=== PATIENT | female | born 2000 | race Caucasian/White ===

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

== ENCOUNTER 2020-04-25 16:09 | Emergency (ER) | payer BC ==
[~2020-04-25] VITALS: Ht 162.6 cm; Wt 81.8 kg
[2020-04-25 16:13] VITALS: TEMP 98.5
[2020-04-25 17:13] LABS: COLLECTION METHOD CLEAN CATCH
[2020-04-25 17:30] LABS: MUCOUS Present /lpf; PH 5 (5-8); URINE APPEARANCE Hazy; URINE BACTERIA None Seen /hpf; URINE BILIRUBIN Negative (NEGATIVE); URINE BLOOD Negative (NEGATIVE); URINE COLOR Yellow; URINE GLUCOSE Negative (NEGATIVE); URINE KETONE Trace (NEGATIVE); URINE LEUKOCYTE ESTERASE Negative (NEGATIVE); URINE NITRATE Negative (NEGATIVE); URINE PROTEIN(semi-quant) Negative (NEGATIVE); URINE RBC 0-2 /hpf; URINE UROBILINOGEN Negative (NEGATIVE)
[2020-04-25 17:35] LABS: BASO % 0.3 % (0.0-2.0); EOS # 0.3 (0.0-0.7); EOS % 2.1 % (0-4.0); GRAN # 9.9 (1.4-6.5); GRAN % 64.2 % (42.2-75.2); HEMATOCRIT 39.5 % (35.0-45.0); HEMOGLOBIN 13.2 g/dl (12.0-15.0); LYMPH # 4.4 (1.2-3.4); LYMPH % 28.3 % (20.0-51.0); MEAN CELL VOLUME 88 fl (80.0-95.0); MEAN CORPUSCULAR HEMOGLOBIN 29 pg (26.0-32.0); MEAN CORPUSCULAR HGB CONC 33 g/dl (33.0-37.0); MEAN PLATELET VOLUME 10.3 fl (7.4-10.4); MONO # 0.7 (0.1-0.6); MONO % 4.7 % (1.7-9.3); PLATELET COUNT 307 K/mm3 (130-400); RED BLOOD COUNT 4.51 M/mm3 (4.10-5.30); REDCELL DISTRIBUTION WIDTH-CV 12.4 % (11.5-14.5)
[2020-04-25 17:42] LABS: ALBUMIN 4.1 gm/dL (3.5-5.0); BILIRUBIN,TOTAL 0.3 mg/dL (0.0-1.0); CALCIUM 9.2 mg/dL (8.4-10.2); CREATININE, serum 0.48 (0.52-1.25); POTASSIUM 3.7 mmol/L (3.4-5.0); TOTAL PROTEIN 7.1 gm/dL (6.4-8.2)
[2020-04-25 18:09] VITALS: BP 116/78; PULSE 64
== END 2020-04-25 18:10 | disposition home or self-care (01) ==
LOC: COL.ER 16:09
PROVIDERS: Nurse Practitioner Primary Care
DX: O26.891 Other specified pregnancy related conditions, first trimester (principal); R10.31 Right lower quadrant pain; R10.32 Left lower quadrant pain; R35.0 Frequency of micturition; Z3A.13 13 weeks gestation of pregnancy
CPT/HCPCS: J7030

== ENCOUNTER 2020-05-05 12:45 | Emergency (ER) | payer BC ==
[~2020-05-05] VITALS: Ht 162.6 cm; Wt 81.8 kg
[2020-05-05 13:41] LABS: COLLECTION METHOD CLEAN CATCH
[2020-05-05 13:46] LABS: MUCOUS Present /lpf; PH 8 (5-8); SQUAMOUS EPITHELIAL 0-2 /hpf; URINE APPEARANCE Clear; URINE BACTERIA None Seen /hpf; URINE BILIRUBIN Negative (NEGATIVE); URINE BLOOD Negative (NEGATIVE); URINE COLOR Straw; URINE GLUCOSE Negative (NEGATIVE); URINE KETONE Negative (NEGATIVE); URINE LEUKOCYTE ESTERASE Negative (NEGATIVE); URINE NITRATE Negative (NEGATIVE); URINE PROTEIN(semi-quant) Negative (NEGATIVE); URINE RBC None Seen /hpf; URINE UROBILINOGEN Negative (NEGATIVE)
[2020-05-05 13:51] LABS: BASO % 0.4 % (0.0-2.0); EOS # 0.3 (0.0-0.7); EOS % 2.2 % (0-4.0); GRAN % 62.5 % (42.2-75.2); HEMATOCRIT 40.3 % (35.0-45.0); HEMOGLOBIN 13.9 g/dl (12.0-15.0); LYMPH # 3.3 (1.2-3.4); LYMPH % 29.3 % (20.0-51.0); MEAN CELL VOLUME 84 fl (80.0-95.0); MEAN CORPUSCULAR HEMOGLOBIN 29 pg (26.0-32.0); MEAN CORPUSCULAR HGB CONC 35 g/dl (33.0-37.0); MEAN PLATELET VOLUME 10.2 fl (7.4-10.4); MONO # 0.6 (0.1-0.6); MONO % 5.2 % (1.7-9.3); PLATELET COUNT 278 K/mm3 (130-400); RED BLOOD COUNT 4.78 M/mm3 (4.10-5.30); REDCELL DISTRIBUTION WIDTH-CV 12.5 % (11.5-14.5)
[2020-05-05 13:55] LABS: TRICYCLIC ANTIDEPRESS URINE NEGATIVE
[2020-05-05 14:03] LABS: ALANINE AMINOTRANSFERASE 14 U/L (4-34); ALBUMIN 4.1 gm/dL (3.5-5.0); ALKALINE PHOSPHATASE 58 U/L (50-136); ANION GAP 6 mmol/L (7-16); AST,SGOT 26 U/L (15-37); BILIRUBIN,TOTAL 0.6 mg/dL (0.0-1.0); BLOOD UREA NITROGEN 7 mg/dL (7-17); CALCIUM 9.7 mg/dL (8.4-10.2); CARBON DIOXIDE 23 mmol/L (22-30); CHLORIDE 108 mmol/L (98-107); GLUCOSE 89 mg/dL (74-106); POTASSIUM 4.1 mmol/L (3.4-5.0); SODIUM 136 mmol/L (137-145); TOTAL PROTEIN 7.2 gm/dL (6.4-8.2)
[2020-05-05 14:04] LABS: ALCOHOL(ethanol),MEDICAL < 10 mg/dL
[2020-05-05 14:19] LABS: TROPONIN-I < 0.012 ng/mL (0.000-0.035)
[2020-05-05 14:27] LABS: INR 0.9 (0.8-3.0); PROTHROMBIN TIME 10.5 SECONDS (9.7-12.8)
[2020-05-05 16:05] VITALS: BP 122/78; PULSE 64; TEMP 98.8
== END 2020-05-05 16:07 | disposition home or self-care (01) ==
LOC: COL.ER 12:45
PROVIDERS: Emergency Medicine
DX: O99.891 Other specified diseases and conditions complicating pregnancy (principal); R10.2 Pelvic and perineal pain; R53.1 Weakness; R20.2 Paresthesia of skin; Z3A.15 15 weeks gestation of pregnancy

== ENCOUNTER 2020-08-11 23:16 | Outpatient (CLI) | payer MEDICAID ==
--- NOTE | 2020-08-11 23:20 | NUR ---
2320- PATIENT WHEELED ONTO UNIT WITH BY HER SIDE. PATIENT IS A PATIENT WHO FOLLOWS UP IN [place] AT [facility]. PATIENT STATED SHE HAS NO COMPLICATIONS THIS ROUND OR WITH ANY OF HER PREGNANCIES OTHER THAN LABOR WITH 2ND PREGNANY 3 MONTHS EARLY AND DELIVERING A MONTH EARLY. PATIENT REPORTS GFM, NO LOF OR BLEEDING AND CONTRACTIONS THAT STARTED AROUND 2145 THIS NIGHT AND HAVE GOTTEN CLOSER TOGETHER AND MORE INTENSE. 2325- EFM AND TOCO ON AND TRACING. ASSESSMENT COMPLETED, VITALS TAKEN, PLAN OF CARE DISCUSSED. SVE WAS 1/THICK/HIGH.
[2020-08-12 00:30] VITALS: BP 120/66; PULSE 68; TEMP 98
[2020-08-12 01:30] VITALS: BP 111/57; PULSE 83
[2020-08-12 01:53] VITALS: BP 107/63; PULSE 79
== END 2020-08-12 02:05 | disposition home or self-care (01) ==
LOC: LDRO 23:16
DX: O62.9 Abnormality of forces of labor, unspecified (principal); Z3A.00 Weeks of gestation of pregnancy not specified
CPT/HCPCS: J0702; J3105; J7120

== ENCOUNTER 2020-08-13 01:30 | Outpatient (CLI) | payer MEDICAID ==
--- NOTE | 2020-08-13 01:45 | NUR ---
Ambulatory to unit for 2nd Betamethasone shot, accompanied by spouse.Reviewed monitor, plan of care. Questions invited and answered. Pt reports "just a few contractions today, nothing consistent, hor very uncomfortable."
--- NOTE | 2020-08-13 02:09 | NUR ---
12mg Betamethasone to R.
--- NOTE | 2020-08-13 02:30 | NUR ---
Discharge instructions reviewed with pt and spouse. Questions invited and answered.
== END 2020-08-13 02:30 | disposition home or self-care (01) ==
LOC: LDRO 01:30 → LDR 01:45 → LDRO 02:30
DX: O76 Abnormality in fetal heart rate and rhythm complicating labor and delivery (principal); Z3A.00 Weeks of gestation of pregnancy not specified
CPT/HCPCS: OP; J0702

== ENCOUNTER 2020-10-02 13:05 | Outpatient (CLI) | payer MEDICAID ==
[~2020-10-02] VITALS: Ht 162.6 cm; Wt 86.4 kg
--- NOTE | 2020-10-02 13:15 | NUR ---
Pt arrived on unit ambulatory and with complaints of contractions starting last evening and worsening this morning. Pt denies any leaking of fluid or vaginal bleeding and reports normal movement. EFM and toco monitors started. Vital signs WNL. SVE /-3.
[2020-10-02] MEDS ORDERED: TYLENOL 500MG500 MG PO (13:29)
[2020-10-02 14:20] VITALS: BP 120/58; PULSE 77; TEMP 98.2
--- NOTE | 2020-10-02 14:20 | NUR ---
SVE done with no change . See physician notification for details.
[2020-10-02 15:20] VITALS: BP 113/55; PULSE 68
--- NOTE | 2020-10-02 15:29 | NUR ---
Discharge information and labor precautions reviewed with pt and at the bedside. Both verbalized an understanding, agreed with the plan and state no questions or concerns at this time.
== END 2020-10-02 15:30 | disposition home or self-care (01) ==
LOC: LDRO 13:05
DX: O62.9 Abnormality of forces of labor, unspecified (principal); Z3A.36 36 weeks gestation of pregnancy

== ENCOUNTER 2020-10-21 13:36 | Inpatient (IN) | payer MEDICAID ==
[~2020-10-21] VITALS: Ht 162.6 cm; Wt 87.3 kg
[~2020-10-21 13:36] MED LIST changes: +TYLENOL 500MG500 MG PO
[2020-10-23] VITALS (39 sets, daily range): BP systolic 97–126; BP diastolic 44–84; PULSE 54–91; TEMP 97.6–97.8
--- NOTE | 2020-10-23 06:25 | NUR ---
Patient ambulatory to LR6 with spouse, changed into gown, FHR/TOCO monitors placed and explained. Patient here for scheduled induction. Patient denies any regular contractions/leaking of fluid/vaginal bleeding/decreased movement. Plan of care discussed. 0640: IV started in left hand, blood obtained and to lab, LR infusing. Assessment completed/consents signed/ packet given. 0714: Pitocin induction discussed and patient agrees with plan and pitocin started at 2mU/hr per protocol.
[2020-10-23] MEDS ORDERED: VALTREX 50500 MG/TAB PO (07:22)
[2020-10-23] MEDS ORDERED: PROTONIX 40MG T40 MG PO (07:23)
[2020-10-23 07:25] LABS: BASO % 0.3 % (0.0-2.0); EOS # 0.2 (0.0-0.7); GRAN # 6.1 (1.4-6.5); GRAN % 52.2 % (42.2-75.2); HEMOGLOBIN 10.8 g/dl (12.0-15.0); LYMPH # 4.3 (1.2-3.4); LYMPH % 36.8 % (20.0-51.0); MEAN CELL VOLUME 86 fl (80.0-95.0); MEAN CORPUSCULAR HEMOGLOBIN 28 pg (26.0-32.0); MEAN CORPUSCULAR HGB CONC 33 g/dl (33.0-37.0); MEAN PLATELET VOLUME 10.7 fl (7.4-10.4); MONO % 8.4 % (1.7-9.3); PLATELET COUNT 311 K/mm3 (130-400); RED BLOOD COUNT 3.82 M/mm3 (4.10-5.30); REDCELL DISTRIBUTION WIDTH-CV 13.2 % (11.5-14.5)
--- NOTE | 2020-10-23 07:43 | NUR ---
Patient off monitors to void. 0750: Variable deceleration noted and patient right lateral. 0800: Dr. Alas at bedside and assessing patient and FHR. SVE-2/70/-2 and AROM at this time with clear fluid noted. Plan of care discussed. Patient requesting epidural at this time and Kory CREDIT REVIEW OFFICER notified.
--- NOTE | 2020-10-23 08:35 | NUR ---
Patient sitting up for epidural placement. Kory LUBRICATION WORKER at bedside and difficulty tracing FHR. 0844: Test dose given and patient tolerates well. Patient repositioned and plan of care/safety instructions given. 0935: Goodman catheter placed and SVE-5/80/-2 and patient right lateral with left leg resting in stirrup. 1000: Recurrent early decelerations noted. FHR decreasing to 70bpm and patient left lateral. 1003: FHR decreasing to 70bpm and patient right lateral. Pitocin off, O2 on at 10ml/hr, LR bolus started. Dr. Alas called and notified. 1010: Patient to knees chest and FHR increasing to baseline of 120bpm 1015: Patient left lateral and Dr. Alas at bedside and SVE 4/90/-2 per physician.
--- NOTE | 2020-10-23 11:15 | NUR ---
Dr. Alas at nurses station continues to review FHR strip, recurrent varaible decelerations noted with contractions. 1120: Dr. Alas orders to start pitocin back on at 2 mU/hr. Pitocin turned back on at this time. Patient sitting in gabriella position.
--- NOTE | 2020-10-23 11:55 | NUR ---
Dr. Alas at bedside and SVE-/0 and patient sitting in gabriella position. 1225: Recurrent early decelerations noted. 1232: Patient right lateral with left leg in stirrup, FHR baseline 115bpm and decreasing to 60-90bpm, patient left lateral and SVE-/0, FHR 90bpm and patient right lateral, Oxygen on 10ml/hr via mask, LR bolus started, and pitocin off. 1240: FSE attempted at this time and Dr. Alas called and notified. FSE off and patient in knees/chest. FHR increasing to 100-110bpm. 1248: Patient in gabriella position and plan of care discussed.
--- NOTE | 2020-10-23 13:35 | NUR ---
SVE-/[address] Alas called and notified. 1415: Dr. Alas at bedside and SVE-complete and patient set up for vaginal delivery. 1422: Patient begins pushing with contractions. 1425: Spontaneous vaginal delivery of viable male, head followed by body, infant to patients abdomen and bulb syringed. Leonid HASSAN assumes care of infant. Cord clamped by physician and cut by FOB. Cord blood obtained. 1428: Spontaneous delivery of placenta and pitocin bolus started per protocol. Perineum intact and patient repositioned. Fundal massage done/firm/bleeding WNL. Ice pack to perineum and plan of care discussed.
--- NOTE | 2020-10-23 17:15 | NUR ---
Patient sitting up on edge of bed and assisted to wheelchair, to bathroom, voids, pericare done, new underwear/pad/gown on, assisted to wheelchair and to new room. Oriented to room and plan of care discussed.
[2020-10-24 02:14] VITALS: BP 107/56; PULSE 59; TEMP 97.9
[2020-10-24] MEDS ORDERED: MOTRIN 800800 MG/TAB PO (07:57)
[2020-10-24 09:00] VITALS: BP 104/63; PULSE 61; TEMP 97.6
--- NOTE | 2020-10-24 13:32 | NUR ---
Initial visit; Parents thanked Operational Risk Consultant for offering congratulations and God's blessings for the of their son.
--- NOTE | 2020-10-24 19:25 | NUR ---
1850- DISCHARGE INSTRUCTIONS REVIEWED WITH PT AND SPOUSE, UNDERSTANDING VERBALIZED, QUESTIONS ENCOURAGED AND ANSWERED. NOTIFIED OF 6 WEEK FOLLOW UP APPOINTMENT. 1924- BABY IN INFANT CARRIER, PT OFF UNIT AMBULATORY WITH SPOUSE AND .
== END 2020-10-24 19:25 | disposition home or self-care (01) | DRG 806 ==
LOC: OB 10-23 06:18 → LDR 10-23 06:18 → OB 10-23 17:25
PROVIDERS: ADMIT Obstetrics & Gynecology
PROC: 10E0XZZ Delivery of Products of Conception, External Approach (ICD-10-PCS; principal; 2020-10-23)
PROC: 10907ZC Drainage of Amniotic Fluid, Therapeutic from Products of Conception, Via Natural or Artificial Opening (ICD-10-PCS; 2020-10-23)
PROC: 3E033VJ Introduction of Other Hormone into Peripheral Vein, Percutaneous Approach (ICD-10-PCS; 2020-10-23)
DX: O99.02 Anemia complicating childbirth (principal); O98.513 Other viral diseases complicating pregnancy, third trimester; Z37.0 Single live birth; B00.9 Herpesviral infection, unspecified; O99.613 Diseases of the digestive system complicating pregnancy, third trimester; K21.9 Gastro-esophageal reflux disease without esophagitis; O99.344 Other mental disorders complicating childbirth; F41.9 Anxiety disorder, unspecified; F32.9 Major depressive disorder, single episode, unspecified; Z3A.39 39 weeks gestation of pregnancy
CPT/HCPCS: J2405; J2590; J7120

== ENCOUNTER 2021-01-25 18:55 | Emergency (ER) | payer MEDICAID ==
[~2021-01-25] VITALS: Ht 162.6 cm; Wt 81.8 kg
[~2021-01-25 18:55] MED LIST changes: +MOTRIN 800800 MG/TAB PO; +PROTONIX 40MG T40 MG PO; +VALTREX 50500 MG/TAB PO
[2021-01-25 19:10] VITALS: TEMP 98.4
[2021-01-25 19:54] LABS: COLLECTION METHOD CLEAN CATCH
[2021-01-25 20:02] LABS: MUCOUS Present /lpf; PH 6 (5-8); URINE APPEARANCE Hazy; URINE BACTERIA None Seen /hpf; URINE BILIRUBIN Negative (NEGATIVE); URINE BLOOD Negative (NEGATIVE); URINE COLOR Yellow; URINE GLUCOSE Negative (NEGATIVE); URINE KETONE 2+ (NEGATIVE); URINE LEUKOCYTE ESTERASE Trace (NEGATIVE); URINE NITRATE Negative (NEGATIVE); URINE PROTEIN(semi-quant) 2+ (NEGATIVE)
[2021-01-25] MEDS ORDERED: OMNICEF 300MG300 MG PO (22:49)
[2021-01-25] MEDS ORDERED: ZOFRAN ODT4 MG PO (22:49)
[2021-01-25 23:08] VITALS: BP 116/44; PULSE 79
== END 2021-01-25 23:08 | disposition home or self-care (01) ==
LOC: COL.ER 18:55
PROVIDERS: Nurse Practitioner Family
DX: N12 Tubulo-interstitial nephritis, not specified as acute or chronic (principal); Z20.822 Contact with and (suspected) exposure to COVID-19
CPT/HCPCS: J0696; J1885; J2405

== ENCOUNTER 2021-06-25 20:41 | Emergency (ER) | payer MEDICAID ==
[~2021-06-25] VITALS: Ht 162.6 cm; Wt 81.8 kg
[~2021-06-25 20:41] MED LIST changes: +ZOFRAN ODT4 MG PO
[2021-06-25 21:17] VITALS: TEMP 98.1
[2021-06-25 21:58] LABS: BASO % 0.3 % (0.0-2.0); EOS # 0.1 K/mm3 (0.0-0.7); EOS % 0.8 % (0.0-4.0); GRAN # 9.2 K/mm3 (1.4-6.5); GRAN % 83.1 % (42.2-75.2); HEMOGLOBIN 12.4 g/dl (12.0-15.0); LYMPH # 1.2 K/mm3 (1.2-3.4); MEAN CELL VOLUME 83 fl (80.0-95.0); MEAN CORPUSCULAR HEMOGLOBIN 29 pg (26-32); MEAN CORPUSCULAR HGB CONC 35 g/dl (33.0-37.0); MEAN PLATELET VOLUME 10.1 fl (7.4-10.4); MONO # 0.5 K/mm3 (0.1-0.6); MONO % 4.3 % (1.7-9.3); PLATELET COUNT 239 K/mm3 (130-400); RED BLOOD COUNT 4.26 M/mm3 (4.10-5.30)
[2021-06-25 22:01] LABS: HEMATOCRIT 35.4 % (35.0-45.0)
[2021-06-25 22:13] LABS: ALBUMIN 3.3 gm/dL (3.5-5.0); BILIRUBIN,TOTAL 0.6 mg/dL (0.2-1.2); CALCIUM 8.5 mg/dL (8.4-10.2); CREATININE, serum 0.6 mg/dL (0.57-1.11); POTASSIUM 3.8 mmol/L (3.5-4.5); TOTAL PROTEIN 6.6 gm/dL (6.2-8.1)
[2021-06-25 22:56] LABS: COLLECTION METHOD CLEAN CATCH
[2021-06-25 23:03] LABS: MUCOUS Present (NOT PRESENT); PH 5 (5-8); URINE APPEARANCE Hazy (CLEAR/HAZY); URINE BACTERIA None Seen /hpf (NONE SEEN); URINE BILIRUBIN Negative (NEGATIVE); URINE BLOOD Negative (NEGATIVE); URINE COLOR Yellow (YELLOW); URINE GLUCOSE Negative (NEGATIVE); URINE KETONE 2+ (NEGATIVE); URINE LEUKOCYTE ESTERASE Negative (NEGATIVE); URINE NITRATE Negative (NEGATIVE); URINE PROTEIN(semi-quant) Negative (NEGATIVE); URINE RBC 0-2 /hpf (0-2); URINE UROBILINOGEN Negative (NEGATIVE)
[2021-06-25] MEDS ORDERED: ZOFRAN ODT4 MG PO (23:17)
[2021-06-25 23:30] VITALS: BP 132/69; PULSE 85
== END 2021-06-25 23:37 | disposition home or self-care (01) ==
LOC: COL.ER 20:41
PROVIDERS: Emergency Medicine
DX: O21.9 Vomiting of pregnancy, unspecified (principal); O99.282 Endocrine, nutritional and metabolic diseases complicating pregnancy, second trimester; E87.1 Hypo-osmolality and hyponatremia; Z3A.17 17 weeks gestation of pregnancy
CPT/HCPCS: J2405; J2765; J7030

== ENCOUNTER 2021-11-24 21:33 | Outpatient (CLI) | payer MEDICAID ==
[~2021-11-24] VITALS: Ht 162.6 cm; Wt 90.9 kg
--- NOTE | 2021-11-24 21:40 | NUR ---
PT ADMITS TO L&D WITH C/O UC'S SINCE 1599. PT TO BED, SVE /-2. NO BLEEDING OR LEAKING FLUID. UC'S PALPATE VERY MILD AT THIS TIME. MONITORS ON. FHR REACTIVE WITH ACCELS NO DECELS. PT IS . PT STATES SHE WAS 2 CM IN THE OFFICE ON SATURDAY.
[2021-11-24 22:00] VITALS: BP 129/76; PULSE 101; TEMP 98.4
--- NOTE | 2021-11-24 22:30 | NUR ---
PT UP TO AMB TO THE BR AND VOID. PT WILL AMB IN THE DIAMOND FOR ABOUT 1 HR AND WILL RECHECK HER CERVIX.
--- NOTE | 2021-11-24 23:40 | NUR ---
pt back from amb in [place]. back to bed. monitors on. sve no change in cervix.
[2021-11-24 23:45] VITALS: TEMP 98.2
--- NOTE | 2021-11-25 00:05 | NUR ---
DR CHAPMAN NOTIFIED OF PT'S COMPLAINTS, VAG EXAM X 2 THAT WAS UNCHANGED. PT AMB FOR 1 HR. UC'S 4-5 MINS, PALPATE MILD, NO LEAKING OR BLEEDING. ORDERS PT CAN BE DISCHARGED TO HOME OR SHE CAN STAY ANOTHER HOUR TO SEE IF HER UC'S GET STRONGER. INFORMED PT AND SHE IS GOING TO GO HOME. MONITORS OFF AND PT UP TO GET DRESSED.
--- NOTE | 2021-11-25 00:20 | NUR ---
PT AMB OUT WITH HER SPOUSE, PT NOT IN LABOR AT THIS TIME.
== END 2021-11-25 00:20 | disposition home or self-care (01) ==
LOC: LDRO 21:33
DX: O99.613 Diseases of the digestive system complicating pregnancy, third trimester (principal); Z3A.38 38 weeks gestation of pregnancy

== ENCOUNTER 2021-12-05 18:25 | Outpatient (CLI) | payer MEDICAID ==
[~2021-12-05] VITALS: Ht 162.6 cm; Wt 90.9 kg
--- NOTE | 2021-12-05 18:20 | NUR ---
1820 STATES SHE IS HIEN EVERY 5 MINUTES. NO CONTRACTIONS PALPATED. SAT UP FOR EMESIS. STATES THINKS WATER BROKE WITH SHE WAS THROWING UP. SVE WITH AMNIOTRACE. NO FLUID NOTED ON EXAM AND AMNIOTRACE WAS NOT POSITIVE.
[2021-12-05 18:40] VITALS: BP 126/76; PULSE 77
--- NOTE | 2021-12-05 18:40 | NUR ---
1840 G4L3 40.1 WEEK GEST TO LR4 WITH C/O CONTRACTIONS. STATES HAS BEEN HIEN ON AND OFF SINCE LAST SATURDAY BUT FEELS LIKE THEY ARE BECOMING STRONGER THIS AFTERNOON. SYLVIA. HIMA -- WHICH WAS HER LAST EXAM IN DRS OFFICE ON SATURDAY. ADM ASSESSMENT COMPLETED. TO RIGHT SIDE TO REST.
[2021-12-05] MEDS ORDERED: PRIL40 PO (18:49)
[2021-12-05] MEDS ORDERED: VALTREX 50500 MG/TAB PO (18:50)
[2021-12-05 19:20] VITALS: BP 108/58; PULSE 75
--- NOTE | 2021-12-05 19:45 | NUR ---
1945 SVE WITH NO CERVICAL CHANGE. NO AMNIOTIC FLUID NOTED ON EXAM. NO CONTRACTIONS NOTED ON EFM. BABY VERY ACTIVE WITH GOOD ACCELERATIONS NOTED. DR CHAPMAN ON UNIT AND REPORT GIVEN. ORDER RECEIVED TO DISMISS TO HOME. 2009 HOME WITH INSTRUCTIONS.
== END 2021-12-05 20:10 | disposition home or self-care (01) ==
LOC: LDRO 18:25
DX: O47.1 False labor at or after 37 completed weeks of gestation (principal); Z3A.40 40 weeks gestation of pregnancy

== ENCOUNTER 2021-12-07 13:07 | Inpatient (IN) | payer MEDICAID ==
[~2021-12-07] VITALS: Ht 162.6 cm; Wt 89.1 kg
[~2021-12-07 13:07] MED LIST changes: +PRIL40 PO
[2021-12-09] VITALS (21 sets, daily range): BP systolic 109–144; BP diastolic 53–67; PULSE 56–85; TEMP 97.5–98.7
--- NOTE | 2021-12-09 14:20 | NUR ---
1420- patient arrived ambulatory on unit with spouse. Oriented to labor room 4 and assisted into gown. EFM and TOCO placed and tracing well. 1430- arrives on unit. Viewing EFM from nurses station. 1440- Dr. Alas SVE 3-4/80/-2, AROM. Patient tolerated procedure well, EFM tracing with accelerations and no decels.
[2021-12-09 15:17] LABS: BASO % 0.2 % (0.0-2.0); EOS # 0.1 K/mm3 (0.0-0.7); GRAN # 7.9 K/mm3 (1.4-6.5); HEMOGLOBIN 10.2 g/dl (12.5-16.0); LYMPH # 3.4 K/mm3 (1.2-3.4); LYMPH % 27.4 % (20.0-51.0); MEAN CELL VOLUME 80 fl (80.0-100.0); MEAN CORPUSCULAR HEMOGLOBIN 26 pg (27-31); MEAN CORPUSCULAR HGB CONC 32 g/dl (33.0-37.0); MEAN PLATELET VOLUME 10.9 fl (7.4-10.4); MONO # 0.9 K/mm3 (0.1-0.6); MONO % 7.1 % (1.7-9.3); PLATELET COUNT 363 K/mm3 (130-400); RED BLOOD COUNT 3.98 M/mm3 (4.10-5.30); REDCELL DISTRIBUTION WIDTH-CV 14.2 % (11.5-14.5)
[2021-12-09 15:24] LABS: HEMATOCRIT 31.8 % (37.0-47.0)
--- NOTE | 2021-12-09 15:45 | NUR ---
1530- PATIENT SITTING ON SIDE OF BED FOR EPIDURAL PLACEMENT. 1534- CATHETER IN PLACE AND TEST DOSE ADMINISTERED. PATIENT TOLERATED DOSE, REPOSITIONED INTO BED FOR PACHECO PLACEMENT.
--- NOTE | 2021-12-09 17:00 | NUR ---
1709- [facility] [place] /-1. 1715- PREPARES FOR DELIVERY. PUSHES WITH CONTRACTIONS. 1718- DELIVERY OF VIABLE HEAD AND BODY BY . 1720- PLACENTA SPONTANEOUSLY DELIVERED. PITCOIN STARTED AT 333 PER ORDER AND PER POLICY. PERINEUM INTACT.
[2021-12-09] MEDS ORDERED: MOTRIN 800800 MG/TAB PO (17:35)
--- NOTE | 2021-12-09 21:30 | NUR ---
Up to bathroom with steady gait. Voids without difficulty. Performs own peicare. Clean gown on and ambulates to room.
[2021-12-10 10:05] VITALS: BP 119/62; PULSE 65; TEMP 97.7
== END 2021-12-10 19:40 | disposition home or self-care (01) | DRG 806 ==
LOC: OB 13:07 → LDR 12-09 14:14 → OB 12-09 21:30
PROVIDERS: ADMIT Obstetrics & Gynecology
PROC: 10E0XZZ Delivery of Products of Conception, External Approach (ICD-10-PCS; principal; 2021-12-09)
PROC: 10907ZC Drainage of Amniotic Fluid, Therapeutic from Products of Conception, Via Natural or Artificial Opening (ICD-10-PCS; 2021-12-09)
PROC: 3E033VJ Introduction of Other Hormone into Peripheral Vein, Percutaneous Approach (ICD-10-PCS; 2021-12-09)
DX: O48.0 Post-term pregnancy (principal); O98.52 Other viral diseases complicating childbirth; Z37.0 Single live birth; O99.62 Diseases of the digestive system complicating childbirth; K21.9 Gastro-esophageal reflux disease without esophagitis; O99.02 Anemia complicating childbirth; D64.9 Anemia, unspecified; B00.9 Herpesviral infection, unspecified; O99.344 Other mental disorders complicating childbirth; Z3A.40 40 weeks gestation of pregnancy; F32.A Depression, unspecified; F41.9 Anxiety disorder, unspecified; F90.9 Attention-deficit hyperactivity disorder, unspecified type; O99.214 Obesity complicating childbirth; E66.01 Morbid (severe) obesity due to excess calories; Z87.442 Personal history of urinary calculi
CPT/HCPCS: J2590; J7120